=== PATIENT | female | born 1985 | race Asian ===

== ENCOUNTER 2018-08-30 13:38 | Emergency (ER) | payer OTHER ==
[~2018-08-30] VITALS: Ht 157.5 cm; Wt 56.7 kg
[2018-08-30 14:11] VITALS: BP 109/78
[2018-08-30 15:11] VITALS: PULSE 107; TEMP 99.1
== END 2018-08-30 15:47 | disposition home or self-care (01) ==
LOC: COL.ER 13:38
DX: J30.9 Allergic rhinitis, unspecified (principal)